=== PATIENT | male | born 1965 | race Caucasian/White ===

== ENCOUNTER 2016-05-10 08:22 | Emergency (ER) ==
[2016-05-10 08:46] VITALS: BP 118/77
[2016-05-10] MEDS ORDERED: XYLOCAINE 2% VISCOUS MT ONE (09:27)
[2016-05-10] MEDS ORDERED: TYLENOL LIQUID PO ONE (09:27)
--- NOTE | 2016-05-10 09:29 | PROVIDER DOCUMENTATION ---
HPI-EENT General - General Chief Complaint: Toothache Stated Complaint: TOOTHACHE Time Seen by Provider: 05/10/16 09:03 Source: patient Allergies/Adverse Reactions: Patient Allergies Allergy/AdvReac Type Severity Reaction Status Date / Time No Known Allergies Allergy Verified 05/10/16 09:11 Home Medications: Home Medication List Medication Instructions Recorded Confirmed Last Taken Type Diclofenac Sodium [Diclofenac 100 mg PO DAILY #30 tab.er.24h 05/10/16 Unknown Rx Sodium ER] Penicillin V Potassium 500 mg PO BID #20 tablet 05/10/16 Unknown Rx - History of Present Illness-EENT General Nature of Presenting Problem: 50 y/o WM c/o toothache and tooth fx x 1 day. Pt states he was at work when he turned his head and hit his L jaw on a corner of a wall. States tooth fx in L upper jaw with pain and redness to the area. States pain radiates to L ear. Denies any other sxs. States pain 8/10. Review of Systems - Adult - REVIEW OF SYSTEMS - ADULT Constitutional: reports: no symptoms reported. denies: chills, fever Eyes: reports: no symptoms reported. denies: blurred vision, double vision Ears, Nose, Mouth & Throat: reports: see HPI, ear pain, mouth/dental pain. denies: sinus problem, throat pain Cardiovascular: reports: no symptoms reported. denies: chest pain, palpitations Respiratory: reports: no symptoms reported. denies: dyspnea on exertion, shortness of breath Gastrointestinal: reports: no symptoms reported. denies: nausea, vomiting Genitourinary: reports: no symptoms reported. denies: dysuria, frequency Musculoskeletal: reports: no symptoms reported. denies: joint pain, joint swelling Integumentary: reports: no symptoms reported. denies: nail changes, rash Neurological: reports: no symptoms reported. denies: numbness, paresthesia Psychiatric: reports: no symptoms reported Endocrine: reports: no symptoms reported. denies: cold intolerance, heat intolerance Hematologic/Lymphatic: reports: no symptoms reported. denies: easy bruising, prolonged bleeding Allergic/Immunologic: reports: no symptoms reported All Other Systems: Reviewed and Negative Past History - Adult - PAST MEDICAL HISTORY-ADULT Review of Records: reports: Nursing Assessment Review, Medications Reviewed Major Childhood Illnesses: reports: denies history Cardiovascular: reports: denies history Respiratory: reports: denies history Gastrointestinal: reports: denies history Obstetrical/Gynecological: reports: denies history Genitourinary: reports: denies history Musculoskeletal: reports: denies history Neurological: reports: denies history Endocrine/Immune: reports: denies history Other Conditions: reports: denies history - PRIOR SURGERIES/PROCEDURES Surgical/Procedure History: reports: hernia repair, other (vasectomy/knee surgery x3/) - IMMUNIZATION STATUS Childhood Immunizations: See Nurse Assessment Flu Vaccine: See Nurse Assessment - FAMILY HISTORY Family History: reviewed, not pertinent - SOCIAL HISTORY Smoking: cigarettes, greater than 1 pack/day Provider spent 3-5 mins advising pt. on dangers of tobacco.: Discussed manners to quit use, and f/u contacts for add'l counseling. Physical Exam- EENT - Physical Exam EENT Initial Vital Signs Reviewed: Yes General Appearance: alert, mild distress Eye Exam: bilateral eye: normal inspection Ear Exam: bilateral ear: auricle normal, canal normal, TM normal Nasal Exam: normal inspection. negative: sinus tenderness Throat Exam: pharynx normal. negative: tonsillar exudate, tonsillar swelling Mouth,Throat: 1 - tooth fx with dentin exposed 2 - dental decay 3 - gingival redness, swelling, tenderness Neck: supple, normal inspection, lymphadenopathy (mild, cervical) Respiratory: no respiratory distress Lymphatic: negative: cervical node tenderness Back Exam: normal inspection Extremity: normal gait Integumentary: normal color, normal turgor, warm/dry Neurologic: negative: aphasia Psych/Mental Status: normal mood/affect, normal thought content, normal thought process, oriented x 3 Progress - PLAN OF CARE/RESULTS Progress/Plan/Lab Results: Orders Category Date Time Status Acetaminophen Liquid [Tylenol Liquid] Med 05/10/16 09:27 Discontinued 650 mg PO NOW ONE Lidocaine 2% Viscous [Xylocaine 2% Viscous] Med 05/10/16 09:27 Discontinued 15 ml MT NOW ONE Vital Signs Temp Pulse Resp BP Pulse Ox 05/10/16 08:44 98.0 F 77 16 118/77 96 No Known Allergies Allergy (Verified 05/10/16 09:11) Diclofenac Sodium [Diclofenac Sodium ER] 100 mg PO DAILY #30 tab.er.24h Penicillin V Potassium 500 mg PO BID #20 tablet 05/10/16 Pt given dental relief with mixture of lidocaine and tylenol and discussed f/u with dentist; provided a copy of dental clinics to pt. Departure - Departure Time of Disposition Order: 09:24 DIAGNOSIS: Tooth infection, Dental decay Tooth fracture Qualifiers: Encounter type: initial encounter Fracture type: open Qualified Code(s): S02.5XXB - Fracture of tooth (traumatic), initial encounter for open fracture Disposition: HOME 01 Certified Medical Emergency: Emergent Condition: Stable Additional Instructions: Take medications as directed. Follow up with dentist for further management. Return if symptoms get worse. ED Follow Up Instructions: You have been treated by a care provider in the Emergency Department. These instructions are being provided to you so you can have an understanding of how to care for yourself upon discharge. Upon discharge from the Emergency Department, you are responsible for making arrangements for follow-up care by a physician of your choice. Take all prescribed medications as directed. Return to the Emergency Department immediately for any new or worsening symptoms. You may call the Physician Referral phone number at [phone] to obtain a list of Physicians who are taking new patients. Prescriptions: Diclofenac Sodium [Diclofenac Sodium ER] 100 mg PO DAILY #30 tab.er.24h Penicillin V Potassium 500 mg PO BID #20 tablet Referrals: None,PCP [Primary Care Provider] - Forms: Return to School/Parent Work Instructions: Tooth Fracture, Dental Pain, [id number] Attestation - Physician/ RACHAEL Attestation Patient care was provided by Advanced Practice Provider:: Yes Advanced Practice Provider:: Marissa Streeter Advanced Practice Provider documentation review:: The Mid-level provider documentation, treatment plan and medical decision making was reviewed by the physician who agrees with all treatment and medical decision making by the MLP.
== END 2016-05-10 10:00 | disposition home or self-care (01) ==
LOC: ED 08:22
DX: K04.7 Periapical abscess without sinus (principal); K02.9 Dental caries, unspecified; S02.5XXA Fracture of tooth (traumatic), initial encounter for closed fracture; K08.89 Other specified disorders of teeth and supporting structures; F17.210 Nicotine dependence, cigarettes, uncomplicated; Z71.6 Tobacco abuse counseling
CPT/HCPCS: 99282